=== PATIENT | female | born 1980 | race American Indian/Alaskan Native ===

== ENCOUNTER 2018-03-03 14:39 | Emergency (ER) | payer SELFPAY ==
[2018-03-03 15:05] LABS: Bilirubin,Urine NEG (Negative); Blood,Urine SM (Negative); Color,Urine Amber (Yellow); Mucus,Urine 3+ /HPF
[2018-03-03 15:09] LABS: HCG Qualitative,Urine Negative (Negative)
--- NOTE | 2018-03-03 16:55 | Emergency Department Report ---
ED Female HPI - General Chief complaint: Urogenital-Female Stated complaint: DISCHARGE/ODOR Time Seen by Provider: 03/03/18 16:23 Source: patient Mode of arrival: Ambulatory Limitations: No Limitations - History of Present Illness Initial comments: Patient is a 37-year-old female who is complaining of vaginal discharge last 3 days. Patient has a long-standing history of occasional bacterial vaginosis. She usually occurs near the time of her menses. Patient states she has some discomfort at the vulva but denies any actual dysuria. Patient states she has a thin vaginal discharge with a mild odor. Patient states [employer]el as helped her in the past. - Related Data Previous Rx's Medication Instructions Recorded Last Taken Type metroNIDAZOLE 0.75% [Vandazole 1 applicator [facility] #7 tube 03/03/18 Unknown Rx 0.75% VAGINAL] Allergies Allergy/AdvReac Type Severity Reaction Status Date / Time No Known Allergies Allergy Unverified 03/03/18 14:43 ED Review of Systems ROS: Stated complaint: DISCHARGE/ODOR Other details as noted in HPI Comment: All other systems reviewed and negative ED Past Medical Hx - Past Medical History Previous Medical History?: No - Surgical History Past Surgical History?: No - Social History Smoking Status: Never Smoker Substance Use Type: None - Medications Home Medications: Home Medications Medication Instructions Recorded Confirmed Last Taken Type metroNIDAZOLE 0.75% [Vandazole 1 applicator [facility] #7 tube 03/03/18 Unknown Rx 0.75% VAGINAL] ED Physical Exam - General Limitations: No Limitations General appearance: alert, in no apparent distress - Head Head exam: Present: atraumatic, normocephalic - Eye Eye exam: Present: normal appearance - ENT ENT exam: Present: mucous membranes moist - Neck Neck exam: Present: normal inspection - Respiratory Respiratory exam: Present: normal lung sounds bilaterally. Absent: respiratory distress, wheezes, rales, rhonchi - Cardiovascular Cardiovascular Exam: Present: regular rate, normal rhythm. Absent: systolic murmur, diastolic murmur, rubs, gallop - GI/Abdominal GI/Abdominal exam: Present: soft, normal bowel sounds. Absent: distended, tenderness, guarding, rebound - Extremities Exam Extremities exam: Present: normal inspection - Back Exam Back exam: Present: normal inspection - Neurological Exam Neurological exam: Present: alert, oriented X3 - Psychiatric Psychiatric exam: Present: normal affect, normal mood - Skin Skin exam: Present: warm, dry, intact, normal color. Absent: rash ED Course Vital Signs 03/03/18 14:43 Temperature 97.9 F Pulse Rate 72 Respiratory 18 Rate Blood Pressure 130/74 O2 Sat by Pulse 98 Oximetry ED Medical Decision Making - Lab Data Lab Results 03/03/18 Range/Units 14:52 Urine Color Mendy (Yellow) Urine Turbidity Cloudy (Clear) Urine pH 5.0 (5.0-7.0) Ur Specific [facility] 1.030 (1.003-1.030) Urine Protein 30 mg/dl (Negative) mg/dL Urine Glucose (UA) Neg (Negative) mg/dL Urine Ketones Neg (Negative) mg/dL Urine Blood Sm (Negative) Urine Nitrite Neg (Negative) Urine Bilirubin Neg (Negative) Urine Urobilinogen 4.0 (<2.0) mg/dL Ur Leukocyte Esterase Neg (Negative) Urine WBC (Auto) 6.0 (0.0-6.0) /HPF Urine RBC (Auto) 4.0 (0.0-6.0) /HPF U Epithel Cells (Auto) 33.0 H (0-13.0) /HPF Urine Mucus 3+ /HPF Urine HCG, Qual Negative (Negative) Critical care attestation.: If time is entered above; I have spent that time in minutes in the direct care of this critically ill patient, excluding procedure time. ED Disposition Clinical Impression: Bacterial vaginosis Disposition: - TO HOME OR SELFCARE Is pt being admited?: No Does the pt Need Aspirin: No Condition: Stable Instructions: Bacterial Vaginosis (ED) Prescriptions: metroNIDAZOLE 0.75% [Vandazole 0.75% VAGINAL] 1 applicator [facility] #7 tube Referrals: [facility] [Outside] - 3-5 Days Time of Disposition: 16:54
[2018-03-03 17:15] VITALS: BP 125/69
== END 2018-03-03 17:13 | disposition home or self-care (01) ==
LOC: ED 14:39
DX: N76.0 Acute vaginitis (principal)
CPT/HCPCS: 81001; 81025; 99283